=== PATIENT | male | born 1965 | race Caucasian/White ===

== ENCOUNTER 2020-02-12 22:44 | Emergency (ER) | payer SELFPAY ==
[~2020-02-12] VITALS: Ht 175.3 cm; Wt 103.9 kg
[2020-02-12 22:44] VITALS: BP_SYST 139
--- NOTE | 2020-02-12 22:49 | NUR ---
Placed in room 5 . Placed on youth nutritional monitor, blood pressure machine and pulse oximeter. To gown for exam. Side rails up.
--- NOTE | 2020-02-12 22:50 | NUR ---
ER Dr. Perez at bedside examining patient.
--- NOTE | 2020-02-12 22:50 | NUR ---
Pt ambulated into er after being dropped off by "friend". Pt states that he was just released from long term approx 1 week ago, and last night he started to have R sided neck pain, and swelling/pain to 4th digit on L hand from what patient describes as a "spider Bite". Pt denies nausea, vomiting, diarrhea, shortness of breath, chest pain or any other medical complaint at this time. Pt arrived to ED with pinpoint pupils, sweating, and visually agitated. Pt admits to using alcohol, cocain, and methamphetamine prior to ED visit. Pt cooperative with treatment at this time. Pt resting in ed bed comfortably, VSS.
[2020-02-12] MEDS ORDERED: DEXAMETHASONE SOD PHOSPHATE 10 MG/ML VIAL IM ONE (23:00)
[2020-02-12] MEDS ORDERED: KETOROLAC TROMETHAMINE 60 MG/2 ML VIAL IM ONE (23:00)
[2020-02-12] MEDS ORDERED: ACETAMINOPHEN 500 MG TABLET ONE (23:20)
--- NOTE | 2020-02-12 23:25 | NUR ---
Patient given written and verbal discharge instructions and verbalizes understanding. ER MD discussed with patient the results and treatment provided. Patient in stable condition. ID arm band removed. Rx of Tylenol, Neosporin, and Keflex given. Patient educated on pain management and to follow up with PMD. Pain Scale 0/10. Opportunity for questions provided and answered. Medication side effect fact sheet provided.
[2020-02-12] MEDS ORDERED: ACETAMINOPHEN 500 MG TABLET PO ONE (23:30)
== END 2020-02-12 23:25 | disposition home or self-care (01) ==
LOC: SED 22:44
DX: S60.461A Insect bite (nonvenomous) of left index finger, initial encounter (principal); M54.2 Cervicalgia; F14.10 Cocaine abuse, uncomplicated; F15.10 Other stimulant abuse, uncomplicated; F17.210 Nicotine dependence, cigarettes, uncomplicated; W57.XXXA Bitten or stung by nonvenomous insect and other nonvenomous arthropods, initial encounter; Y93.89 Activity, other specified; Y92.89 Other specified places as the place of occurrence of the external cause; Y99.8 Other external cause status
CPT/HCPCS: 96372; 99284; J1100; J1885